=== PATIENT | female | born 1970 | race Caucasian/White ===

== ENCOUNTER 2017-09-07 11:49 | Emergency (ER) | payer OTHER ==
[2017-09-07] MEDS ORDERED: Sodium Chloride 0.9% 1000 ML 1,000 ML IV STA (12:06)
[2017-09-07] MEDS ORDERED: Sodium Chloride 0.9% 1000 ML 1,000 ML ONE (12:10)
--- NOTE | 2017-09-07 12:10 | ERPHSYRPT ---
- History of Present Illness Time Seen by Provider: 09/07/17 12:03 Historian: patient Exam Limitations: no limitations Patient Subjective Stated Complaint: Pt states "I am having abdominal pain, I think it is gas or maybe constipation. It has been onging for a little over a week and when I have a bowel movement, it is very small and I drank one of those mag citrate things from the store and I had a small bowel movement and then it was just water." Triage Nursing Assessment: Pt alert and oriented X 3, skin pwd. PT extremely anxious, ambulates with an upright steady gait, able to speak in clear full sentences. PT in no apparent respiratory distress. Physician History: This is a 47-year-old white female arrives with complaint of abdominal pain for one week it is located in various spots anywhere from the suprapubic region to the periumbilical region to the epigastric region. She states that she's had decreased bowel movements with small amounts of stool No vomiting no diarrhea Patient states she thought she was constipated so took magnesium citrate but this did not help. Past medical history includes migraines. Past surgical history includes tubal ligation. Timing/Duration: week(s) (one week) Activities at Onset: none Quality: cramping Abdominal Pain Onset Location: epigastric, periumbilical, suprapubic, other Pain Radiation: no radiation Severity of Pain-Max: moderate Severity of Pain-Current: mild Modifying Factors: Improves With: nothing Associated Symptoms: No back, No chest pain, No diaphoresis, No diarrhea, No fever/chills, No fatigue, No headache, No heartburn, No loss of appetite, No nausea, No neck pain, No rash, No shortness of breath, No syncope, No vomiting, No weakness Previous symptoms: no prior history Allergies/Adverse Reactions: Sulfa (Sulfonamide Antibiotics) Allergy (Severe, Verified 09/07/17 12:01) Swelling Home Medications: No Reportable Medications [No Reported Medications] 09/07/17 [History] Hx Tetanus, Diphtheria Vaccination/Date Given: No Hx Influenza Vaccination/Date Given: No Hx Pneumococcal Vaccination/Date Given: No Immunizations Up to Date: Yes - Review of Systems Constitutional: No Fever, No Chills Eyes: No Symptoms Ears, Nose, & Throat: No Symptoms Respiratory: No Cough, No Dyspnea Cardiac: No Chest Pain, No Edema, No Syncope Abdominal/Gastrointestinal: Abdominal Pain, Constipation Genitourinary Symptoms: No Dysuria Musculoskeletal: No Back Pain, No Neck Pain Skin: No Rash Neurological: No Dizziness, No Focal Weakness, No Sensory Changes Psychological: No Symptoms Endocrine: No Symptoms All Other Systems: Reviewed and Negative - Past Medical History Pertinent Past Medical History: Yes Other Medical History: migraines - Past Surgical History Past Surgical History: Yes Other Surgical History: tubal - Social History Smoking Status: Never smoker Exposure to second hand smoke: No Drug Use: none Patient Lives Alone: No - Female History Hx Last Menstrual Period: 09/07/2017 Hx Now: No - Nursing Vital Signs Nursing Vital Signs: Initial Vital Signs Temperature 98.0 F 09/07/17 11:52 Pulse Rate 92 H 09/07/17 11:52 Respiratory Rate 18 09/07/17 11:52 Blood Pressure 131/97 09/07/17 11:52 O2 Sat by Pulse Oximetry 99 09/07/17 11:52 Pain Scale Pain Intensity 4 - Physical Exam General Appearance: no apparent distress, alert Eye Exam: PERRL/EOMI, eyes nml inspection Ears, Nose, Throat Exam: normal ENT inspection, pharynx normal, moist mucous membranes Neck Exam: normal inspection, non-tender, supple, full range of motion Respiratory Exam: normal breath sounds, lungs clear, No respiratory distress Cardiovascular Exam: regular rate/rhythm, normal heart sounds Gastrointestinal/Abdomen Exam: soft, No tenderness, No mass Rectal Exam: normal exam, normal rectal tone, No blood Back Exam: normal inspection, normal range of motion, No CVA tenderness, No vertebral tenderness Extremity Exam: normal inspection, normal range of motion, pelvis stable Neurologic Exam: alert, oriented x 3, cooperative, nurse administrator II-XII nml as tested, normal mood/affect, nml cerebellar function, sensation nml, No motor deficits Skin Exam: normal color, warm, dry SpO2 Interpretation: normal (99%) SpO2: 99 Oxygen Delivery: Room Air - Course Nursing assessment & vital signs reviewed: Yes - Radiology Exams Abdomen X-ray Interpretation: Discussed w/ radiologist (three-view abdomen series: 1. Mild fecal stasis without obstruction 2. Normal 1 view chest) Ordered Tests: Active Orders 24 hr Category Date Time Status IV Insertion STAT Care 09/07/17 12:06 Active OBSTR/ACUTE ABDOMEN SERIES Stat Exams 09/07/17 13:03 Completed AMYLASE Stat Lab 09/07/17 12:17 Completed CBC W DIFF Stat Lab 09/07/17 12:17 Completed CMP Stat Lab 09/07/17 12:17 Completed CULTURE,URINE Stat Lab 09/07/17 14:15 Received HCG QUALITATIVE,SERUM Stat Lab 09/07/17 12:17 Completed LIPASE Stat Lab 09/07/17 12:17 Completed Occult Blood,Stool Other Stat Lab 09/07/17 12:28 Completed UA W/ MICROSCOPIC Stat Lab 09/07/17 14:15 Completed Medication Summary Discontinued Medications Generic Name Dose Route Start Last Admin Trade Name Michael PRN Reason Stop Dose Admin Sodium Chloride 1,000 mls @ 999 mls/hr 09/07/17 12:06 09/07/17 12:31 Sodium Chloride 0.9% 1000 Ml IV 09/07/17 13:06 999 mls/hr .Q1H1M STA Administration Sodium Chloride Confirm 09/07/17 12:10 Sodium Chloride 0.9% 1000 Ml Administered 09/07/17 12:11 Dose 1,000 mls @ ud .ROUTE .K-MED ONE Lab/Rad Data: Laboratory Result Diagrams 09/07/17 12:17 09/07/17 12:17 Laboratory Results 09/07/17 09/07/17 09/07/17 Range/Units 14:15 12:28 12:17 WBC (4.0-10.5) K/mm3 RBC (4.1-5.4) M/mm3 Hgb (12.0-16.0) gm/dl Hct (35-47) % MCV (78-100) fl MCH (26-32) pg MCHC (32-36) g/dl RDW (11.5-14.0) % Plt Count (150-450) K/mm3 MPV (6-9.5) fl Gran % (36.0-66.0) % Eos # (Auto) (0-0.5) Absolute Lymphs (auto) (1.0-4.6) Absolute Monos (auto) (0.0-1.3) Lymphocytes % (24.0-44.0) % Monocytes % (0.0-12.0) % Eosinophils % (0.00-5.0) % Basophils % (0.0-0.4) % Absolute Granulocytes (1.4-6.9) Basophils # (0-0.4) Sodium (137-145) mmol/L Potassium (3.5-5.1) mmol/L Chloride (98-107) mmol/L Carbon Dioxide (22-30) mmol/L Anion Gap (5-15) MEQ/L BUN (7-17) mg/dL Creatinine (0.52-1.04) mg/dL Estimated GFR ML/MIN Glucose (74-106) mg/dL Calcium (8.4-10.2) mg/dL Total Bilirubin (0.2-1.3) mg/dL AST (14-36) U/L ALT (0-35) U/L Alkaline Phosphatase (38-126) U/L Serum Total Protein (6.3-8.2) g/dL Albumin (3.5-5.0) g/dL Amylase (30-110) U/L Lipase (23-300) U/L Serum , Qual NEGATIVE (Negative) Ur Collection Type VOID Urine Color YELLOW (YELLOW) Urine Appearance CLEAR (CLEAR) Urine pH 5.0 (5-6) Ur Specific Howell 1.010 (1.005-1.025) Urine Protein NEGATIVE (Negative) Urine Ketones NEGATIVE (NEGATIVE) Urine Blood 250 (0-5) Nam/ul Urine Nitrite NEGATIVE (NEGATIVE) Urine Bilirubin NEGATIVE (NEGATIVE) Urine Urobilinogen NORMAL (0-1) mg/dL Ur Leukocyte Esterase TRACE (NEGATIVE) Urine Microscopic RBC 5-10 (0-2) /HPF Urine Microscopic WBC 0-2 (0-5) /HPF Ur Epithelial Cells FEW (FEW) /HPF Urine Bacteria FEW (NEGATIVE) /HPF Urine Culture Reflexed YES (NO) Urine Glucose NEGATIVE (NEGATIVE) mg/dL Stool Occult Blood NEGATIVE (Negative) Specimen Received 09/07/17 1415 09/07/17 09/07/17 Range/Units 12:17 12:17 WBC 7.2 (4.0-10.5) K/mm3 RBC 4.39 (4.1-5.4) M/mm3 Hgb 12.5 (12.0-16.0) gm/dl Hct 38.2 (35-47) % MCV 87.0 (78-100) fl MCH 28.5 (26-32) pg MCHC 32.7 (32-36) g/dl RDW 14.8 H (11.5-14.0) % Plt Count 275 (150-450) K/mm3 MPV 9.6 H (6-9.5) fl Gran % 64.5 (36.0-66.0) % Eos # (Auto) 0.29 (0-0.5) Absolute Lymphs (auto) 1.74 (1.0-4.6) Absolute Monos (auto) 0.50 (0.0-1.3) Lymphocytes % 24.2 (24.0-44.0) % Monocytes % 6.9 (0.0-12.0) % Eosinophils % 4.0 (0.00-5.0) % Basophils % 0.4 (0.0-0.4) % Absolute Granulocytes 4.64 (1.4-6.9) Basophils # 0.03 (0-0.4) Sodium 139 (137-145) mmol/L Potassium 4.3 (3.5-5.1) mmol/L Chloride 105 (98-107) mmol/L Carbon Dioxide 23 (22-30) mmol/L Anion Gap 15.0 (5-15) MEQ/L BUN 13 (7-17) mg/dL Creatinine 0.91 (0.52-1.04) mg/dL Estimated GFR > 60.0 ML/MIN Glucose 93 (74-106) mg/dL Calcium 9.2 (8.4-10.2) mg/dL Total Bilirubin 0.50 (0.2-1.3) mg/dL AST 26 (14-36) U/L ALT 20 (0-35) U/L Alkaline Phosphatase 64 (38-126) U/L Serum Total Protein 7.4 (6.3-8.2) g/dL Albumin 4.4 (3.5-5.0) g/dL Amylase 44 (30-110) U/L Lipase 48 (23-300) U/L Serum , Qual (Negative) Ur Collection Type Urine Color (YELLOW) Urine Appearance (CLEAR) Urine pH (5-6) Ur Specific Howell (1.005-1.025) Urine Protein (Negative) Urine Ketones (NEGATIVE) Urine Blood (0-5) Nam/ul Urine Nitrite (NEGATIVE) Urine Bilirubin (NEGATIVE) Urine Urobilinogen (0-1) mg/dL Ur Leukocyte Esterase (NEGATIVE) Urine Microscopic RBC (0-2) /HPF Urine Microscopic WBC (0-5) /HPF Ur Epithelial Cells (FEW) /HPF Urine Bacteria (NEGATIVE) /HPF Urine Culture Reflexed (NO) Urine Glucose (NEGATIVE) mg/dL Stool Occult Blood (Negative) Specimen Received - Progress Progress: improved Progress Note: 09/07/17 14:50 47-year-old white female arrives with complaints of abdominal pain in alternating places such as epigastric periumbilical and suprapubic going on for a week, She feels like she has been constipated she did take mag citrate of with some relief but continues to have the pain, On physical examination patient is nontender with palpation acute abdomen series shows mild fecal stasis without obstruction, Patient's CBC CMP and hCG are all within normal limits urine shows 5-10 red cells, Will have patient go home take Alva lax one scoop in 8 ounces of water orally daily (patient states she has this at home) Will also place her on clear fluids 24-48 hours and Dulcolax suppositories. - Departure Time of Disposition: 14:51 Departure Disposition: Home Clinical Impression: Abdominal pain Qualifiers: Abdominal location: generalized Qualified Code(s): R10.84 - Generalized abdominal pain Constipation Qualifiers: Constipation type: unspecified constipation type Qualified Code(s): K59.00 - Constipation, unspecified Condition: Fair Critical Care Time: No Referrals: DOCTOR,NO FAMILY [Primary Care Provider] - Additional Instructions: Return home. Plenty of fluids clear fluids only 24-48 hours if abdominal pain. Alva lax one scoop in 8 ounces of water orally daily. Dulcolax suppositories one rectally as needed for no stool in 48 hours. Follow-up with your family doctor. Return for acute distress or for severe symptoms.
[2017-09-07 12:21] LABS: BASOPHIL % 0.4 % (0.0-0.4); Basophil (Absolute #) 0.03 (0-0.4); Eosinophil (Absolute #) 0.29 (0-0.5); Granulocyte Absolute (ANC) 4.64 (1.4-6.9); Granulocytes % 64.5 % (36.0-66.0); Hematocrit 38.2 % (35-47); Hemoglobin 12.5 gm/dl (12.0-16.0); Lymphocyte (Absolute #) 1.74 (1.0-4.6); Lymphocytes % 24.2 % (24.0-44.0); Mean Corpuscular Hemoglobin 28.5 pg (26-32); Mean Corpuscular Hgb Concent. 32.7 g/dl (32-36); Mean Platelet Volume 9.6 fl (6-9.5); Monocytes % 6.9 % (0.0-12.0); Platelet Count 275 K/mm3 (150-450); Red Blood Count 4.39 M/mm3 (4.1-5.4); Red Cell Distribution Width 14.8 % (11.5-14.0); White Blood Count 7.2 K/mm3 (4.0-10.5)
[2017-09-07 12:37] LABS: ALBUMIN 4.4 g/dL (3.5-5.0); ALKALINE PHOSPHATASE 64 U/L (38-126); AMYLASE 44 U/L (30-110); BLOOD UREA NITROGEN 13 mg/dL (7-17); CHLORIDE 105 mmol/L (98-107); Calcium 9.2 mg/dL (8.4-10.2); Carbon Dioxide 23 mmol/L (22-30); Creatinine 1 0.91 mg/dL (0.52-1.04); Glucose 93 mg/dL (74-106); LIPASE 48 U/L (23-300); Potassium 4.3 mmol/L (3.5-5.1); SGOT/AST 26 U/L (14-36); SGPT/ALT 20 U/L (0-35); SODIUM 139 mmol/L (137-145); Total Protein 7.4 g/dL (6.3-8.2)
--- NOTE | 2017-09-07 13:41 | XRAY ---
Indication: Abdominal pain. Comparison: None 2 views of the abdomen nonacute and nonobstructed with mild scattered colonic fecal debris. A few pelvic phleboliths and tampon in situ. Remaining solid organs and osseous structures unremarkable. Single PA chest demonstrates normal heart, lungs, and bony thorax. Impression: 1. Mild fecal stasis without obstruction. 2. Normal 1 view chest.
[2017-09-07 14:43] LABS: Appearance CLEAR (CLEAR); Bacteria FEW /HPF (NEGATIVE); Bilirubin NEGATIVE (NEGATIVE); Blood 250 Ery/ul (0-5); Epithelial Cells FEW /HPF (FEW); Glucose NEGATIVE (NEGATIVE); Ketones NEGATIVE (NEGATIVE); Leukocyte Esterase TRACE (NEGATIVE); Nitrite NEGATIVE (NEGATIVE); Protein,Urine Dip NEGATIVE (Negative); Urobilinogen NORMAL mg/dL (0-1); WBC 0-2 /HPF (0-5)
[2017-09-07 15:00] VITALS: BP 142/74; PULSE 75; O2SAT 98
== END 2017-09-07 15:00 | disposition home or self-care (01) ==
LOC: ED 11:49
DX: R10.9 Unspecified abdominal pain (principal); K59.00 Constipation, unspecified
CPT/HCPCS: 36000; 36415; 74022; 80053; 81000; 82150; 82272; 83690; 84703; 85025; 87086; 96360; 99284